=== PATIENT | female | born 1940 | race Caucasian/White ===

== ENCOUNTER 2020-08-21 16:18 | Inpatient (IN) | payer MEDICARE, BC ==
[~2020-08-21] VITALS: Ht 160 cm; Wt 55.0 kg
[~2020-08-21 16:18] MED LIST: BACTRIM DS TAB1 EACH PO; CEFUROXIME500 MG PO; DULCOLAX5 MG PO; KEFLEX500 MG PO; MONISTAT 31 EACH VG; OMNICEF 300 MG300 MG PO; PYRIDIUM200 MG PO
[2020-08-21 17:25] LABS: HEMOGLOBIN 11.6 gm/dl (12.3-15.3); RED BLOOD COUNT 3.74 M/UL (4.00-5.10); WHITE BLOOD COUNT 8.2 K/UL (4.5-11.0)
[2020-08-21] MEDS ORDERED: FEROSUL325 MG PO (23:20)
[2020-08-21] MEDS ORDERED: HYDROCODON-ACE1 EAC6 PO (23:20)
[2020-08-21] MEDS ORDERED: PEPCID40 MG PO (23:20)
[2020-08-21] MEDS ORDERED: ALL DAY ALLERGY10 M2 PO (23:21)
[2020-08-21] MEDS ORDERED: LIPITOR TAB 2020 MG PO (23:21)
[2020-08-21] MEDS ORDERED: FENOFIBRATE160 MG PO (23:22)
[2020-08-21] MEDS ORDERED: AMARYL1 MG PO (23:22)
[2020-08-21] MEDS ORDERED: TOPROL XL25 MG PO (23:28)
[2020-08-21] MEDS ORDERED: MECLIZINE HCL25 MG PO (23:28)
[2020-08-21] MEDS ORDERED: KLONOPIN TAB 00.5 MG PO (23:29)
[2020-08-21] MEDS ORDERED: ZOFRAN ODT 4 MG4 MG PO (23:29)
[2020-08-21] MEDS ORDERED: ALDACTONE25 MG PO (23:30)
[2020-08-21] MEDS ORDERED: ARICEPT5 MG PO (23:30)
[2020-08-22 05:03] LABS: RED BLOOD COUNT 2.96 M/UL (4.00-5.10)
--- NOTE | 2020-08-23 17:01 | NUR ---
SPOKE WITH PT SON SANYA ANDRE WHO IS POA. HE STATES THAT HE WOULD ALLOWS US TO PUT ANDREW LOYA ON A VENTILATOR SHOULD IT BE NECESSARY.
[2020-08-24 11:03] LABS: HEMOGLOBIN 9.1 gm/dl (12.3-15.3); RED BLOOD COUNT 2.97 M/UL (4.00-5.10)
[2020-08-24 11:04] LABS: WHITE BLOOD COUNT 9.9 K/UL (4.5-11.0)
[2020-08-24 11:37] LABS: BUN/CREATININE RATIO 44 (0-10)
[2020-08-25 05:10] LABS: HEMOGLOBIN 8.9 gm/dl (12.3-15.3); RED BLOOD COUNT 2.91 M/UL (4.00-5.10); WHITE BLOOD COUNT 10.2 K/UL (4.5-11.0)
[2020-08-25 05:52] LABS: BUN/CREATININE RATIO 54 (0-10)
[2020-08-26 05:07] LABS: HEMOGLOBIN 7.8 gm/dl (12.3-15.3)
[2020-08-26 05:48] LABS: RED BLOOD COUNT 2.56 M/UL (4.00-5.10); WHITE BLOOD COUNT 16.6 K/UL (4.5-11.0)
[2020-08-27 07:14] LABS: WHITE BLOOD COUNT 14.6 K/UL (4.5-11.0)
[2020-08-27 07:32] LABS: HEMOGLOBIN 6.7 gm/dl (12.3-15.3); RED BLOOD COUNT 1.98 M/UL (4.00-5.10)
[2020-08-27 16:15] LABS: HEMOGLOBIN 7.9 gm/dl (12.3-15.3)
[2020-08-28 06:11] LABS: HEMOGLOBIN 9.3 gm/dl (12.3-15.3)
[2020-08-28 06:12] LABS: WHITE BLOOD COUNT 20.4 K/UL (4.5-11.0)
[2020-08-28 07:31] LABS: BUN/CREATININE RATIO 30 (0-10)
[2020-08-29 05:56] LABS: HEMOGLOBIN 8.4 gm/dl (12.3-15.3); RED BLOOD COUNT 2.73 M/UL (4.00-5.10)
[2020-08-29 06:17] LABS: BUN/CREATININE RATIO 62 (0-10)
[2020-08-30 05:03] LABS: RED BLOOD COUNT 2.61 M/UL (4.00-5.10); WHITE BLOOD COUNT 14.2 K/UL (4.5-11.0)
[2020-08-30 05:39] LABS: BUN/CREATININE RATIO 56 (0-10)
[2020-08-31 05:05] LABS: HEMOGLOBIN 7.6 gm/dl (12.3-15.3); RED BLOOD COUNT 2.38 M/UL (4.00-5.10); WHITE BLOOD COUNT 12.8 K/UL (4.5-11.0)
[2020-08-31 05:22] LABS: BUN/CREATININE RATIO 48 (0-10)
[2020-09-01 05:56] LABS: HEMOGLOBIN 7.1 gm/dl (12.3-15.3); RED BLOOD COUNT 2.31 M/UL (4.00-5.10); WHITE BLOOD COUNT 10.7 K/UL (4.5-11.0)
[2020-09-01 06:12] LABS: BUN/CREATININE RATIO 54 (0-10)
[2020-09-02 05:09] LABS: HEMOGLOBIN 7.1 gm/dl (12.3-15.3); RED BLOOD COUNT 2.33 M/UL (4.00-5.10); WHITE BLOOD COUNT 9.4 K/UL (4.5-11.0)
[2020-09-02 05:38] LABS: BUN/CREATININE RATIO 64 (0-10)
[2020-09-03 04:51] LABS: HEMOGLOBIN 7.3 gm/dl (12.3-15.3); RED BLOOD COUNT 2.41 M/UL (4.00-5.10); WHITE BLOOD COUNT 9.8 K/UL (4.5-11.0)
[2020-09-03 05:08] LABS: BUN/CREATININE RATIO 57 (0-10)
[2020-09-04 07:26] LABS: HEMOGLOBIN 7.4 gm/dl (12.3-15.3); RED BLOOD COUNT 2.54 M/UL (4.00-5.10); WHITE BLOOD COUNT 8.7 K/UL (4.5-11.0)
[2020-09-04 07:47] LABS: BUN/CREATININE RATIO 53 (0-10)
== END 2020-09-06 21:38 | disposition expired | DRG 207 ==
LOC: ER1 16:18 → CDU 18:41 → CCU 18:41 → M/S 08-23 00:31 → CCU 08-23 19:16 → MED SURG 4 09-06 16:58
PROVIDERS: Hospitalist; Internal Medicine; Internal Medicine Pulmonary Disease; Preventive Medicine Occupational Medicine; ADMIT Internal Medicine
PROC: 8E0ZXY6 Isolation (ICD-10-PCS; 2020-08-21)
PROC: XW033E5 Introduction of Remdesivir Anti-infective into Peripheral Vein, Percutaneous Approach, New Technology Group 5 (ICD-10-PCS; 2020-08-21)
PROC: 5A09457 Assistance with Respiratory Ventilation, 24-96 Consecutive Hours, Continuous Positive Airway Pressure (ICD-10-PCS; 2020-08-21)
PROC: 05HM33Z Insertion of Infusion Device into Right Internal Jugular Vein, Percutaneous Approach (ICD-10-PCS; 2020-08-24)
PROC: B543ZZA Ultrasonography of Right Jugular Veins, Guidance (ICD-10-PCS; 2020-08-24)
PROC: 5A1955Z Respiratory Ventilation, Greater than 96 Consecutive Hours (ICD-10-PCS; principal; 2020-08-25)
PROC: 0BH17EZ Insertion of Endotracheal Airway into Trachea, Via Natural or Artificial Opening (ICD-10-PCS; 2020-08-25)
PROC: XW13325 Transfusion of Convalescent Plasma (Nonautologous) into Peripheral Vein, Percutaneous Approach, New Technology Group 5 (ICD-10-PCS; 2020-08-26)
PROC: 30233N1 Transfusion of Nonautologous Red Blood Cells into Peripheral Vein, Percutaneous Approach (ICD-10-PCS; 2020-08-27)
PROC: 0DJ08ZZ Inspection of Upper Intestinal Tract, Via Natural or Artificial Opening Endoscopic (ICD-10-PCS; 2020-08-28)
PROC: 0DH68UZ Insertion of Feeding Device into Stomach, Via Natural or Artificial Opening Endoscopic (ICD-10-PCS; 2020-08-28)
PROC: 3E0G76Z Introduction of Nutritional Substance into Upper GI, Via Natural or Artificial Opening (ICD-10-PCS; 2020-08-28)
PROC: 0BC38ZZ Extirpation of Matter from Right Main Bronchus, Via Natural or Artificial Opening Endoscopic (ICD-10-PCS; 2020-08-30)
PROC: 0BC48ZZ Extirpation of Matter from Right Upper Lobe Bronchus, Via Natural or Artificial Opening Endoscopic (ICD-10-PCS; 2020-08-30)
DX: U07.1 COVID-19 (principal); A41.89 Other specified sepsis; J12.82 Pneumonia due to coronavirus disease 2019; J80 Acute respiratory distress syndrome; J18.9 Pneumonia, unspecified organism; K26.4 Chronic or unspecified duodenal ulcer with hemorrhage; N17.9 Acute kidney failure, unspecified; D62 Acute posthemorrhagic anemia; N39.0 Urinary tract infection, site not specified; G93.49 Other encephalopathy; T88.6XXA Anaphylactic reaction due to adverse effect of correct drug or medicament properly administered, initial encounter; D72.828 Other elevated white blood cell count; T38.0X5A Adverse effect of glucocorticoids and synthetic analogues, initial encounter; I10 Essential (primary) hypertension; I95.2 Hypotension due to drugs; E78.5 Hyperlipidemia, unspecified; D64.9 Anemia, unspecified; R00.1 Bradycardia, unspecified; Z51.5 Encounter for palliative care; Z66 Do not resuscitate; B96.89 Other specified bacterial agents as the cause of diseases classified elsewhere; F41.9 Anxiety disorder, unspecified; K21.00 Gastro-esophageal reflux disease with esophagitis, without bleeding; E11.65 Type 2 diabetes mellitus with hyperglycemia; F03.90 Unspecified dementia, unspecified severity, without behavioral disturbance, psychotic disturbance, mood disturbance, and anxiety; Z85.3 Personal history of malignant neoplasm of breast; Z90.12 Acquired absence of left breast and nipple; Z79.899 Other long term (current) drug therapy; Z79.84 Long term (current) use of oral hypoglycemic drugs; Z78.1 Physical restraint status
CPT/HCPCS: 31500; 36415; 36430; 36600; 71045; 71275; 74018; 80048; 80053; 81001; 82550; 82553; 82728; 82803; 82962; 83605; 83615; 83690; 83735; 83874; 83880; 84100; 84484; 85014; 85018; 85025; 85027; 85379; 85384; 85610; 85652; 86140; 86710; 86850; 86900; 86901; 86920; 86927; 87040; 87070; 87077; 87081; 87086; 87186; 87205; 87880; 90471; 93005; 94002; 94003; 94660; 94760; 96365; 96366; 96367; 96372; 96375; 96376; 97167; 99285; A6212; C9113; J0456; J0696; J1100; J1205; J1630; J1650; J2060; J2248; J2250; J2270; J2543; J2704; J2765; J3010; J3370; J3486; J7030; J7040; J7050; J7070; P9016; Q9967; U0002